=== PATIENT | female | born 2000 ===

== ENCOUNTER 2020-07-30 07:17 | Inpatient (IN) | payer OTHER ==
[~2020-07-30] VITALS: Ht 157.5 cm; Wt 73.0 kg
[2020-07-30] MEDS ORDERED: PRENATAL CAPLE1 EAC1 PO (09:21)
== END 2020-08-01 15:14 | disposition home or self-care (01) | DRG 807 ==
LOC: OB/GYN 07:17 → EDBD 07:17 → LDR 07:17 → OB/GYN 20:05
PROVIDERS: ADMIT Obstetrics & Gynecology; ATTEND Obstetrics & Gynecology
PROC: 10E0XZZ Delivery of Products of Conception, External Approach (ICD-10-PCS; principal; 2020-07-30)
PROC: 0W8NXZZ Division of Female Perineum, External Approach (ICD-10-PCS; 2020-07-30)
PROC: 10907ZC Drainage of Amniotic Fluid, Therapeutic from Products of Conception, Via Natural or Artificial Opening (ICD-10-PCS; 2020-07-30)
PROC: 4A1HXFZ Monitoring of Products of Conception, Cardiac Rhythm, External Approach (ICD-10-PCS; 2020-07-30)
DX: O80 Encounter for full-term uncomplicated delivery (principal); Z37.0 Single live birth; Z3A.38 38 weeks gestation of pregnancy; Z20.822 Contact with and (suspected) exposure to COVID-19